=== PATIENT | female | born 1960 | race Caucasian/White ===

== ENCOUNTER → 2017-11-21 07:51 | Outpatient (CLI) | payer OTHER, SELFPAY ==
--- NOTE | 2017-11-21 07:53 | CT_ITS ---
STUDY: CT BRAIN WITHOUT CONTRAST REASON FOR EXAM: Female, 57 years old. One-month history of daily headaches. RADIATION DOSAGE (If Supplied By Facility): CTDIvol = ( 44.99 ) mGy, DLP = ( 796.11 ) mGycm TECHNIQUE: Transaxial CT imaging of the brain was performed without administration of intravenous contrast material. Individualized dose optimization techniques were used for this CT. COMPARISON: Comparison is made with prior study dated July 13, 2010. FINDINGS: Normal soft tissue structures. Normal calvarium. Normal size ventricles and extra-axial spaces for the patient's age. Normal white matter tracts of the cerebral hemispheres. Normal basal ganglia and thalami. Normal brainstem. Normal cerebellum. There is no intracranial hemorrhage. There are no findings of an acute ischemic infarction. Normal visualized paranasal sinuses. CT/Brain/Head without Contrast IMPRESSION: Normal unenhanced CT scan of the brain. Electronically Signed: Kai Maldonado MD at 9:57 EST Tel [phone], Service support ,
== END ==
PROVIDERS: Family Provider Internal Medicine; PCP Internal Medicine; Visit Provider Internal Medicine
DX: R51 Headache (principal)
CPT/HCPCS: 70450

== ENCOUNTER → 2018-05-19 08:09 | Outpatient (CLI) | payer OTHER, SELFPAY ==
--- NOTE | 2018-05-19 08:12 | CDU_ITS ---
Reason For Study: dizzy Rt. Velocities/BP Lt. Velocities/BP Prox CCA 68.6/22.3 cm/sec. Prox CCA 82.1/36.9 cm/sec. Mid CCA 78.6/27.0 cm/sec. Mid CCA 76.8/27.6 cm/sec. Dist CCA 76.8/30.5 cm/sec. Dist CCA 75.6/31.7 cm/sec. Prox ICA 55.1/21.7 cm/sec. Prox ICA 51.6/22.3 cm/sec. Mid ICA 55.1/26.4 cm/sec. Mid ICA 49.4/21.5 cm/sec. Dist ICA 79.2/26.4 cm/sec. Dist ICA 60.3/33.2 cm/sec. Rt. ICA/CCA = 1.0. Lt. ICA/CCA = .8. Prox ECA 61.0/15.8 cm/sec. Prox ECA 90.3/22.3 cm/sec. Rt. Vert. 40.5/17.0 cm/sec. Lt. Vert. 46.9/19.9 cm/sec. Right Extracranial There is intimal thickening but no significant atherosclerotic plaque noted in the right common carotid artery. There is intimal thickening but no significant atherosclerotic plaque noted in the right internal carotid artery. There is intimal thickening but no significant atherosclerotic plaque noted in the right external carotid artery. Antegrade flow is noted in the right vertebral artery. Left Extracranial There is intimal thickening but no significant atherosclerotic plaque noted in the left common carotid artery. There is intimal thickening but no significant atherosclerotic plaque noted in the left internal carotid artery. There is intimal thickening but no significant atherosclerotic plaque noted in the left external carotid artery. Antegrade flow is noted in the left vertebral artery. Interpretation Summary No significant atherosclerotic plaque or stenosis noted in the internal carotid arteries bilaterally. Flow within the vertebral arteries is antegrade bilaterally. Ordering Physician: Brandy Shirley Performed By: Rl Brandon RVT
== END ==
PROVIDERS: Family Provider Internal Medicine; PCP Internal Medicine; Visit Provider Internal Medicine
DX: R42 Dizziness and giddiness (principal)
CPT/HCPCS: 93880

== ENCOUNTER → 2018-08-13 10:33 | Outpatient (CLI) | payer OTHER, SELFPAY ==
--- NOTE | 2018-08-13 10:37 | RAD_ITS ---
STUDY: X-RAY - RIGHT ANKLE REASON FOR EXAM: Female, 57 years old. Lateral ankle pain and soft tissue swelling following a fall. TECHNIQUE: 2 view(s) of the ankle. COMPARISON: None. FINDINGS: Normal visualized distal tibia and fibula. Normal medial and lateral malleoli. Normal tibiotalar articulation and ankle mortise. Calcaneal spurs. The visualized subtalar, talonavicular, calcaneocuboid and tarsal articulations are normal. Diffuse soft tissue swelling. RAD/Ankle 2 Views IMPRESSION: Diffuse soft tissue swelling. Electronically Signed: Kai Maldonado MD at 10:58 EDT Tel [phone], Service support ,
== END ==
PROVIDERS: Family Provider Internal Medicine; PCP Internal Medicine; Referring Provider Internal Medicine; Visit Provider Internal Medicine
DX: M25.571 Pain in right ankle and joints of right foot (principal)
CPT/HCPCS: 73600

== ENCOUNTER 2018-12-04 06:01 | Day surgery (SDC) | payer OTHER, SELFPAY ==
[2018-09-07 12:49] VITALS: BMI 39.5
[2018-12-04] VITALS (7 sets, daily range): BP systolic 107–129; BP diastolic 69–91; PULSE 75–82; RESP 16–18; TEMP 36.3–36.6; O2SAT 95–98; BMI 41.7
--- NOTE | 2018-12-04 05:47 | PCM.HP.STD ---
Problem List (1) Family history of colon cancer in mother Status: Acute History of Present Illness Date of Admission: 12/04/18 The patient is a 58 year old F surgical consultation regarding intractable gastroesophageal reflux disease. He has never had an upper endoscopy. He is dependent upon famotidine and ranitidine. In addition he has a mother who had colon cancer and she of her disease. The patient has had 3 previous colonoscopies. Most recent colonoscopy was November 30, 2013. 5-year follow-up was recommended. She has not had a personal history of colon polyps or colon cancer. Significant health issue includes a BMI of 39.5. Past Medical History Medical History: Medical History (Last Updated 09/07/18 @ 12:46 by Demetria Martinez) Family history of colon cancer in mother (Acute) Z80.0 GERD (gastroesophageal reflux disease) (Acute) K21.9 Anemia D64.9 Anxiety F41.9 GERD (gastroesophageal reflux disease) K21.9 Hyperlipidemia E78.5 Plantar fasciitis M72.2 HTN (hypertension) I10 Allergies amoxicillin Allergy (Mild, Verified 09/07/18 12:50) hives latex Allergy (Mild, Verified 09/07/18 12:50) hives Sulfa (Sulfonamide Antibiotics) Allergy (Mild, Verified 09/07/18 12:50) hives Home Medications: Ambulatory Orders Medication Instructions Recorded amlodipine 5 mg-benazepril 20 mg 1 cap PO DAILY 09/07/18 capsule aspirin 81 mg tablet,delayed 81 mg PO DAILY 09/07/18 release calcium carbonate 500 mg calcium 500 mg PO DAILY tab 09/07/18 (1,250 mg) tablet cholecalciferol (vitamin D3) 50,000 unit PO QWEEK 09/07/18 50,000 unit capsule citalopram 20 mg tablet 20 mg PO DAILY 09/07/18 omeprazole 40 mg capsule,delayed 40 mg PO DAILY 09/07/18 release pravastatin 20 mg tablet 20 mg PO DAILY 09/07/18 Surgical History: Surgical History (Last Updated 09/07/18 @ 12:46 by Demetria Martinez) History of section Z98.891 History of colonoscopy Z98.890 History of foot surgery Z98.890 Smoking Status: Never smoker Tobacco Use: Non-smoker Review of Systems Constitutional: Denies: Anorexia HEENT: Reports: - - Reflux Cardiovascular: Denies: Chest Pain Respiratory: Denies: Cough Gastrointestinal: Denies: Abdominal Pain, Melena Endocrine: Denies: Change in Body Habitus VTE Information - Inpt Only VTE Present on Admission: No - Physical Exam General: Alert, Oriented x3, Cooperative, No apparent distress Oral: Moist Mucosa Lungs: Clear to auscultation Cardiovascular: Regular rate, Regular Rhythm Abdomen: Bowel Sounds Present, Soft, Non Tender Extremities: No Calf Tenderness Psych/Mental Status: Normal Affect Body Mass Index (BMI) 39.5 Assessment/Plan All Active Problems (Last Updated 09/07/18 @ 12:46 by Demetria Martinez) Family history of colon cancer in mother (Acute) GERD (gastroesophageal reflux disease) (Acute) I have recommended the patient a esophagogastroduodenoscopy with possible biopsy or polypectomy and a colonoscopy with possible biopsy or polypectomy as indicated. She is aware of the technique, benefits, risks, alternatives. She has had an opportunity to ask and have questions answered. We have scheduled we will proceed as noted. Gautam Burgos M.D., F.A.C.S.
--- NOTE | 2018-12-04 07:00 | IMM_PTH ---
PATIENT: LARISSA HAMMONDS LOC: [facility] U#:[id number] AGE/SX: 58/F ROOM: RE12/04/[address]: Dr. Gautam Burgos MD : 1960 BED: DIS: 12/04/2018 SPEC #: [id number] RECD: 12/04/18 13:34 STATUS: ROBIN RESherry #: [id number] DANETTE: 12/04/18 07:[address]: Gautam Burgos DEPT: IMMUNOHISTOCHEMISTRY RECD BY: Germaine Shaikh ENTERED: 12/04/18 13:34 SP TYPE: IMMUNO OTHR DR: Dr. Brandy Shirley DO Tissues: A - Stomach, NOS Procedures: H Pylori (initial) PHYSICIAN & INSTITUTION [place] [address] SPECIMEN INFORMATION: Tissue Source: A - Antral biopsy Clinical Info: GERD, family history colon cancer Specimen Number: [id number] CPT code: 81044 METHODOLOGY: Deparaffinized sections of prefer/formalin-fixed tissue or PAP/DQ stained slides are incubated with monoclonal/polyclonal antibodies/oligonucleotide probes. Localization is made via biotin free immunoperoxidase method. Appropriate controls are performed and reacted as expected. Results on target cell population are indicated in the following table: RESULTS: ANTIBODY / CLONE RESULT Block A H Pylori (polyclonal) negative These tests were developed and their performance characteristics determined by [facility]. They may not have been cleared or approved by the U.S. Food and Drug Administration. The FDA has determined that such clearance or approval is not necessary. INTERPRETATION: A. Antral biopsy: Negative for Helicobacter pylori organisms. SJ:dannie 12/07/18
--- NOTE | 2018-12-04 07:00 | EGD_PTH ---
PATIENT: LARISSA HAMMONDS LOC: [facility] U#:[id number] AGE/SX: 58/F ROOM: RE12/04/[address]: Dr. Gautam Burgos MD : 1960 BED: DIS: 12/04/2018 SPEC #: [id number] RECD: 12/04/18 09:52 STATUS: ROBIN GERMÁN #: [id number] DANETTE: 12/04/18 07:[address]: Gautam Burgos DEPT: SURGICAL PATHOLOGY RECD BY: Brandie Tenorio ENTERED: 12/04/18 11:33 SP TYPE: EGD BIOPSY OT DR: Dr. Brandy Shirley DO Tissues: A - Gastric mucous membrane B - Gastric mucous membrane C - Esophageal mucous membrane D - Esophageal mucous membrane Procedures: Special Stain Group II Surgery Specimen Level IV Alcian Blue/PAS (control) HEADER OPERATION[place] [place] PRE[place]OP DIAGNOSIS: GERD, family history of colon cancer TISSUE SUBMITTED: A. Antral biopsy for H. pylori and pathology, B. Body of stomach polyp biopsy, C. Distal esophageal biopsies, D. Mid esophageal biopsies MICROSCOPIC DIAGNOSIS A. Antral biopsy: Mild gastritis. See microscopic description and comment. B. Body of stomach polyp, biopsy: Consistent with fundic gland polyp. C. Distal esophageal biopsy: Fragments of gastroesophageal mucosa with mid chronic inflammation. Intestinal metaplasia (goblet cell metaplasia) is not identified. See comment. D. Mid esophageal biopsy: Fragments of squamous epithelium with mild congestion. SJ:dannie 12/07/18 COMMENT A. The results of immunohistochemistry for Helicobacter pylori will be reported separately ([id number]). C. The specimen predominantly consists of squamous epithelium. Alcian blue/PAS stain with matched control is used in the evaluation of the specimen. MICROSCOPIC DESCRIPTION Slides are reviewed. A. The specimen shows fragments of gastric mucosa with chronic inflammatory cell infiltrates in the lamina propria consisting of lymphocytes and plasma cells, consistent with mild chronic gastritis. GROSS DESCRIPTION A - Received in fixative is one container labeled with the patient's name and designated antral biopsy. The specimen consists of one irregular fragment of light swan soft tissue that measures 0.5 x 0.2 x 0.1 cm. The specimen is totally submitted in one cassette. B - Received in fixative is one container labeled with the patient's name and designated body of stomach polyp. The specimen consists of one irregular fragment of light swan soft tissue that measures 0.6 x 0.2 x 0.1 cm. The specimen is totally submitted in one cassette. C - Received in fixative is one container labeled with the patient's name and designated distal esophagus biopsy. The specimen consists of multiple irregular fragments of light swan soft tissue that in aggregate measure 0.7 x 0.5 x 0.1 cm. The specimen is totally submitted in one cassette. D - Received in fixative is one container labeled with the patient's name and designated mid esophageal biopsy. The specimen consists of multiple irregular fragments of light swan soft tissue that in aggregate measure 0.6 x 0.2 x 0.1 cm. The specimen is totally submitted in one cassette. / AM:dannie 12/04/18 TC:4 CPT: 84280 x4, 89594
--- NOTE | 2018-12-04 07:34 | OP.ENDO_ITS ---
12/04/2018 Brandy Shirley [address] [place] [address] Re : Upper GI endoscopy procedure for Bennettangelicapreeti Kline Dear Dr. Shirley This procedure was performed on Tuesday, December 04, 2018. My impressions and recommendations are as follows: Impressions : - Reflux esophagitis. Biopsied. - Small hiatal hernia. - Esophageal mucosal variant. Biopsied. - Erythematous mucosa in the antrum. Biopsied. - Multiple gastric polyps. Resected and retrieved. - Normal examined duodenum. Recommendations : - Resume previous diet. - Continue present medications. - Telephone my office for pathology results in 1 week. My findings are described in the full procedure note, which is enclosed. If I can be of further assistance, please feel free to contact me at Doctor phone number(s): Work: . Sincerely, Gautam Burgos MD 12/04/2018 7:34:08 AM This report has been signed electronically.
--- NOTE | 2018-12-04 07:36 | OP.ENDO_ITS ---
12/04/2018 Brandy Shirley [address] [place] [address] Re : Colonoscopy procedure for Johann Kline Dear Dr. Shirley This procedure was performed on Tuesday, December 04, 2018. My impressions and recommendations are as follows: Impressions : - The entire examined colon is normal. - No specimens collected. Recommendations : - Discharge patient to home. - Resume previous diet. - Continue present medications. - Repeat colonoscopy in 5 years for surveillance. My findings are described in the full procedure note, which is enclosed. If I can be of further assistance, please feel free to contact me at Doctor phone number(s): Work: . Sincerely, Gautam Burgos MD 12/04/2018 7:35:56 AM This report has been signed electronically.
== END 2018-12-04 08:10 | disposition home or self-care (01) ==
LOC: EN 06:02 → AC 06:03
PROVIDERS: Family Provider Internal Medicine; PCP Internal Medicine; Referring Provider Surgery; Visit Provider Surgery
PROC: 0DJD8ZZ Inspection of Lower Intestinal Tract, Via Natural or Artificial Opening Endoscopic (ICD-10-PCS; CPT 45378; principal; 2018-12-04 06:55)
DX: K21.0 Gastro-esophageal reflux disease with esophagitis (principal); K29.70 Gastritis, unspecified, without bleeding; K44.9 Diaphragmatic hernia without obstruction or gangrene; K22.8 Other specified diseases of esophagus; K31.89 Other diseases of stomach and duodenum; K31.7 Polyp of stomach and duodenum; Z80.0 Family history of malignant neoplasm of digestive organs; I10 Essential (primary) hypertension; D64.9 Anemia, unspecified; F41.9 Anxiety disorder, unspecified; E78.5 Hyperlipidemia, unspecified; Z79.82 Long term (current) use of aspirin; Z79.899 Other long term (current) drug therapy
CPT/HCPCS: 43239; 45378; 88305; 88313; 88342; J7120

== ENCOUNTER → 2019-02-12 12:53 | Outpatient (CLI) | payer OTHER, SELFPAY ==
[2018-12-04 06:25] VITALS: BMI 41.7
--- NOTE | 2019-02-12 13:45 | MRI_ITS ---
HISTORY: RIGHT ankle, RIGHT achilles tendinitis, heel spur EXAMINATION: MR Ankle W/O Contrast TECHNIQUE: Multiplanar and multisequence MR images of the right ankle. IV Contrast dosage and agent: COMPARISON: Right ankle x-ray 08/13/2018 FINDINGS: The right Achilles shows normal signal without findings of tear, suspicious thickening, or tendinosis. No tenosynovitis. Small posterior calcaneal spur. No plantar fasciitis seen. Normal posterior tibial, peroneal, and anterior extensor tendons. Normal tibiofibular and talofibular ligaments and normal deltoid ligament. No fracture, marrow edema, or avascular necrosis. No osteomyelitis. Intact talar dome. The tibiotalar and subtalar joints appear normal. No bony erosions. Mild diffuse soft tissue swelling with both superficial and deep edema noted, nonspecific. MRI/Lower Ext Joint Only (Routine) IMPRESSION: 1. Mild diffuse soft tissue swelling, nonspecific. Chronic venous insufficiency would be included in the differential. 2. Small posterior calcaneal spur. Normal Achilles without tear or tendinosis. No plantar fasciitis seen. at 0507 Reported and signed by: Eric Kovacs MD Electronically Signed: Eric Kovacs, at 5:06 EDT Tel , Service support ,
== END ==
PROVIDERS: Family Provider Internal Medicine; PCP Internal Medicine; Referring Provider Podiatrist; Visit Provider Podiatrist
DX: M77.31 Calcaneal spur, right foot (principal); M76.61 Achilles tendinitis, right leg; S86.011A Strain of right Achilles tendon, initial encounter
CPT/HCPCS: 73721

== ENCOUNTER → 2019-11-15 11:55 | Outpatient (CLI) | payer OTHER, SELFPAY ==
[2018-12-04 06:25] VITALS: BMI 41.7
--- NOTE | 2019-11-15 11:58 | BI_ITS ---
MAMMOGRAPHY - BILATERAL SCREENING REASON FOR EXAM: Female, 59 years old. Routine annual screening examination. PERTINENT HISTORY: Grandmother with breast cancer. TECHNIQUE: Digital bilateral breast otilio (3D mammographic acquisition) in the CC and MLO projections. 2-D mediolateral oblique (MLO) and craniocaudad (CC) views of both breasts were obtained. CAD: Full Field Digital Mammography with Computer Added Detection was performed. COMPARISON: Comparison is made with prior study dated September 08, 2017. FINDINGS: Breast Composition: There are scattered areas of fibroglandular density. There are no dominant masses or suspicious calcifications. Stable small bilateral benign appearing axillary lymph nodes. No other significant abnormalities are identified. There has been no significant change since the prior study. BI/SCREEN MAMM (CAD) W/OTILIO BILAT IMPRESSION: Stable bilateral screening mammogram. Yearly follow-up mammogram recommended. (A) ASSESSMENT CATEGORY: BIRADS Category 2: Benign. A letter regarding these results will be sent to the patient by the facility within 30 days. Approximately 10% of breast cancers are not detected by mammography. A normal mammogram should not delay biopsy of a clinically suspicious abnormality. [id number] Electronically Signed: Kai Maldonado, at 13:12 EST , Service support ,
== END ==
PROVIDERS: PCP Internal Medicine; Referring Provider Nurse Practitioner Women's Health; Visit Provider Nurse Practitioner Women's Health
DX: Z12.31 Encounter for screening mammogram for malignant neoplasm of breast (principal)
CPT/HCPCS: 77063; 77067

== ENCOUNTER → 2019-11-25 10:38 | Outpatient (CLI) | payer OTHER, SELFPAY ==
[2018-12-04 06:25] VITALS: BMI 41.7
--- NOTE | 2019-11-25 10:43 | MRI_ITS ---
STUDY: MRI LEFT ANKLE WITHOUT CONTRAST REASON FOR EXAM: Female, 59 years old. plantar fasciitis left, pain plantar and posterior left heel; hx prior surgery for plantar fasciitis TECHNIQUE: Standardized fat and water weighted pulse sequences were obtained in all 3 orthogonal planes. COMPARISON: None. FINDINGS: Diffuse edema of the subcutaneous fat. Normal posterior tibialis tendon. Normal flexor digitorum longus tendon. Normal flexor hallucis longus tendon. Normal peroneus longus and brevis tendons. Normal tibialis anterior tendon. Normal extensor hallucis longus tendon. Normal extensor digitorum longus tendons. Normal Achilles tendon and teno-osseous insertion. There is a plantar fasciitis with plantar fascial thickening and fascial edema, but without a focal tear. There is a plantar calcaneal spur with cancellous marrow edema consistent with a marrow stress phenomena. Normal intrinsic muscles of the rearfoot. Normal distal tibiofibular syndesmotic ligamentous complex. Normal lateral ligamentous complex. Normal subtalar ligaments and sinus tarsi. Normal deltoid ligamentous complexes. Normal plantar calcaneonavicular (spring) ligament. Normal tibiotalar articulation. Normal talar dome. Normal subtalar articulations. Normal talonavicular articulation. Normal calcaneocuboid articulation. Normal navicular-cuneiform articulations. MRI/Lower Ext Joint Only (Routine) IMPRESSION: 1. Plantar fasciitis with small plantar calcaneal enthesophyte with mild reactive edema of the adjacent calcaneus but no plantar fascial tear. 2. Diffuse soft tissue swelling. Electronically Signed: Juan Perez MD at 8:42 EST Tel , Service support ,
== END ==
PROVIDERS: PCP Internal Medicine; Referring Provider Podiatrist; Visit Provider Podiatrist
DX: M72.2 Plantar fascial fibromatosis (principal); M76.62 Achilles tendinitis, left leg; M77.32 Calcaneal spur, left foot
CPT/HCPCS: 73721

== ENCOUNTER 2019-12-17 09:19 | Day surgery (SDC) | payer OTHER, SELFPAY ==
[2018-12-04 06:25] VITALS: BMI 41.7
[2019-12-17] VITALS (7 sets, daily range): BP systolic 109–128; BP diastolic 63–78; PULSE 59–78; RESP 16–18; TEMP 36.6–37.2; O2SAT 92–100; BMI 46.3
--- NOTE | 2019-12-17 | BON_PTH ---
PATIENT: LARISSA HAMMONDS LOC[place] [facility] [place][id number] AGE/SX: 59/F ROOM: RE12/17/[address]: Dr. Rush George DPM : 1960 BED: DIS: 12/17/2019 SPEC #: [id number] RECD: 12/17/19 13:27 STATUS: ROBIN GERMÁN #: [id number] DANETTE: 12/17/19 00:[address]: Rush George DEPT: SURGICAL PATHOLOGY RECD BY: Jamal Dobson ENTERED: 12/17/19 13:28 SP TYPE: Bone OTHR DR: Dr. Brandy Shirley, DO Tissues: Bone of foot, NOS Procedures: Surgery Specimen Level IV HEADER OPERATION: Plantar fasciotomy with resection of infracalcaneal spur PRE-OP DIAGNOSIS: Achilles tendon retrocalcaneal heel spur; plantar fascitis with infracalcaneal heel spur TISSUE SUBMITTED: Posterior heel spur left MICROSCOPIC DIAGNOSIS Left posterior heel spur, biopsy: Rare red blood cells are present. See comment. AM:dannie 12/24/19 COMMENT The contents of the specimen container were filtered and processed. Clinical correlation is necessary. MICROSCOPIC DESCRIPTION Slides are reviewed. GROSS DESCRIPTION Received in fixative is one container labeled with the patient's name and designated posterior heel spur left. No specimen is present in the container. / SJ:dannie 12/17/19 TC: 5 CPT: 33528
[2019-12-17] MEDS: Lactated Ringers 1,000 ML 100 ML IV ×2 (09:51→12:15)
--- NOTE | 2019-12-17 10:55 | PCM.DC.POD ---
Discharge Diet: Light diet - advance as tolerated Discharge Activity: May Not Drive, Use Walker, Use Crutches Weight Bearing Status: No weight bearing - No weightbearing left foot Keep extremity elevated above heart level: Left Leg - Keep left foot elevated at least 50 minutes of every hour and keep pressure off of heel Call your doctor if your incision/area has: Continuous Slow Oozing, Sudden Increased Bleeding Call your doctor if you observe: Fever of 101 or Higher, Shortness of breath, Chest pain, Calf discomfort, Uncontrolled pain Cleanse incision/area with: Do not get Incision Wet, Keep Dressing Clean & Dry Allergies/Adverse Reactions: Allergies amoxicillin Allergy (Mild, Verified 12/17/19 09:41) hives latex Allergy (Mild, Verified 12/17/19 09:41) hives Sulfa (Sulfonamide Antibiotics) Allergy (Mild, Verified 12/17/19 09:41) hives Medications to take at Discharge amlodipine 5 mg-benazepril 20 mg capsule 1 cap PO QHS 09/07/18 aspirin 81 mg tablet,delayed release 81 mg PO DAILY 09/07/18 calcium carbonate 500 mg calcium (1,250 mg) tablet 500 mg PO DAILY tab 09/07/18 cholecalciferol (vitamin D3) 1,250 mcg (50,000 unit) capsule 50,000 unit PO QWEEK 09/07/18 citalopram 20 mg tablet 20 mg PO QHS 09/07/18 omeprazole 40 mg capsule,delayed release 40 mg PO QHS 09/07/18 pravastatin 20 mg tablet 40 mg PO QHS 09/07/18 Oxycodone HCl/Acetaminophen [Percocet 5-325 mg Tablet] 1 - 2 each PO Q6H PRN PRN #30 tablet 12/17/19 Rivaroxaban [Xarelto] 10 mg PO DAILY #30 tab 12/17/19 The following prescriptions were given: Oxycodone HCl/Acetaminophen [Percocet 5-325 mg Tablet] 1 - 2 each PO Q6H PRN PRN #30 tablet PRN Reason: Pain Score 1-07/22 Transmission Status: Sent to [facility] Rivaroxaban [Xarelto] 10 mg PO DAILY #30 tab Transmission Status: Pending to [facility] Primary Care Physician: Brandy Shirley DO [Primary Care Provider] - Test Results: Test results from this visit will be discussed in further detail at your follow-up appointment, if applicable. Please Follow Up With: Rush George DPM When: 1 week, sooner if needed
--- NOTE | 2019-12-17 11:00 | RAD_ITS ---
STUDY: X-RAY - LEFT CALCANEUS REASON FOR EXAM: Female, 59 years old. PLANTAR FASCIOTOMY, ETC. IN O.R. 3 IMAGES, 18 SEC. FL TECHNIQUE: 2 view(s) of the calcaneus were obtained. COMPARISON: Comparison is made with prior radiograph dated August 13, 2018. FINDINGS: Status post plantar fasciotomy and spur removal. RAD/Calcaneus min 2 Views IMPRESSION: Status post plantar fasciotomy and spur removal. Electronically Signed: Kai Maldonado, at 14:09 EST , Service support ,
[2019-12-17] MEDS: Bupivacaine Mpf 0.5% 30 ML VIAL (12:40)
--- NOTE | 2019-12-17 12:49 | RAD_ITS ---
STUDY: X-RAY - LEFT CALCANEUS REASON FOR EXAM: Female, 59 years old. Post op plantar fasciotomy resection spur TECHNIQUE: 2 view(s) of the calcaneus were obtained. COMPARISON: Comparison is made with prior radiograph done earlier in the day. FINDINGS: The patient is status post fasciotomy and spur removal. Postoperative soft tissue changes. RAD/Calcaneus min 2 Views IMPRESSION: Status post fasciotomy and spur removal. Postoperative soft tissue changes. Electronically Signed: Kai Maldonado, at 14:10 EST , Service support ,
--- NOTE | 2019-12-17 12:49 | PCM.OPRPT ---
Report of Operation Date of Procedure: 12/17/19 Pre-Operative Diagnosis: Painful Haglunds deformity and retrocalcaneal spur, left. Plantar fasciitis, infracalcaneal spur, left Post-Operative Diagnosis: Same Surgery/Procedure Performed:: Detach/Retach achilles tendon with resection of Haglunds deformity and retrocalcaneal spur, left. 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 Tripp Clark Type of Anesthesia:: General Specimen's removed: Bone from left posterior calcaneus sent to pathology Estimated Blood Loss (mL): 1mL Description of Procedure: Indications: This is a 59 year old female with chronic left heel pain, to the posterior heel as well as the inferior heel, despite extensive conservative/nonsurgical management. She continues to have pain and symptoms. Xrays showed an infracalcaneal spurring, as well as retrocalcaneal exostosis/spur with Ant's Deformity, which are the sites of pain. She continues to have pain which was really bothering her and affecting her daily activities. Because symptoms persist, she has elected to undergo detach/reattach Achilles tendon with resection of the retrocalcaneal spur and Ant's Deformity/retrocalcaneal spur, along with plantar fasciotomy with resection of infracalcaneal spur. MRI was reviewed pre op. The procedures were discussed with her in great detail, reviewed the possible benefits vs risks and potential complications. Typical post op recovery was reviewed with her. The goals and the expectations were reviewed with her in detail. The consent forms were reviewed with her in detail, and she freely signed them. No guarantees were given or implied. All of her questions were answered. Operative Procedure: The patient was brought back into the operating room. A time out was performed and the patient was properly identified and the surgical plan was confirmed. The patient received 900mg of IV Clindamycin for antibiotic prophylaxis. A well padded pneumatic tourniquet was applied around the left thigh. The patient received general per the anesthesiologist. The patient was placed on the operating room table in the prone position, with good padding and offloading for all of the bony prominences. She was carefully secured to the operating room table with a safety belt around her waist. The left foot/ankle/leg were scrubbed, prepped, draped in the usual aseptic fashion. The left foot was elevated for 3 minutes and the left thigh pneumatic tourniquet was inflated to 300mmHg. Attention was directed to the posterior heel. There was a large palpable exostosis present at the level of the posterior calcaneus consistent with Ant's deformity as well as retrocalcaneal exostosis. A linear incision was made using a 15 blade to the posterior aspect of the distal Achilles tendon and posterior calcaneus. Careful blunt dissection was completed down through the subcutaneous tissue layer, down to the Achilles tendon and posterior calcaneus. The Achilles tendon was intact, and appeared healthy and viable. The distal Achilles tendon was incised at the level of the distal midline, and was partially reflected off of the central posterior calcaneus exposing the retrocalcaneal spur and Ant deformity. The retrocalcaneal spur and the Ant deformity were resected using a powered sagittal saw and a powered rasp, the resected bone was sent to pathology. Intraoperative fluoroscopy was obtained confirming proper resection of the spur and Ant deformity. The site was flushed out with copious amounts of normal saline solution. The Achilles tendon was reattached to the central portion of the posterior calcaneus using 1 Arthrex Speedbridge in standard fashion. 2 airplane patrol pilot holes were created for the 4.75mm BioComposite Swivelock anchors at the level of 1 cm proximal to the distal insertion of the Achilles tendon and central to each half of the tendon. The airplane patrol pilot holes were tapped with the 4.75mm tap. The two 4.75mm BioComposite Swivel anchors were inserted. The suture was passed through the Achilles tendon on each side. The 2 distal holes were prepared on the posterior calcaneus distal to the insertion of the Achilles tendon with the drill and then the tap. One suture tail from each of the proximal anchors were retrieved and passed through the 2 SwiveLock anchors. The tension was adjusted to the appropriate tension and the 4.75 mm Swivelock anchors were inserted into the distal prepared bone sites. The suture tails were cut flush with the Swivelock anchors. The Swivelock anchors were flush with the bone. The FiberWire suture from each Swivelock anchor was also passed through the Achilles tendon and tied for extra stability and repair. 3-0 Vicryl was also used to reapproximate the midline Achilles tendon incision. There was excellent repair of the Achilles tendon, with negative Maddox test. The surgical site was flushed out with copious amounts of normal saline solution. The subcutaneous tissue layer was reapproximated using 3-0 Vicryl. the skin was reapproximated using 4-0 Monocryl. Attention was directed to the left inferior heel. The infracalcaneal spur was visualized on intra operative fluoroscopy. A skin incision was made to the medial hindfoot at the level of the plantar fascia and infracalcaneal spur, careful dissection was completed down through the subcutaneous tissue layer. A plane was created superiorly and inferiorly around the plantar fascia, there was significant adhesions. The medial 50% of the plantar fascia was released via a plantar fasciotomy. It was noted there was significant thickening of the plantar fascia with fibrosis consistent with chronic plantar fasciitis. The infracalcaneal spur was felt, and was carefully resected using a powered rasp. Resection of the infracalcaneal spur was confirmed using intraoperative fluoroscopy. Images pre and post infracalcaneal spur resection were saved. The site was flushed out with copious amounts of normal saline solution. The skin was reapproximated using 4-0 Monocryl. The pneumatic tourniquet was deflated at 70 minutes, there was immediate return of warmth and perfusion to the foot and to all toes on the foot with normal temperature present. CFT < 2 seconds to all toes. 8mL of 0.5% bupivacaine plain was given as a local nerve block around the surgical site. A dressing was applied which consisted of Cavilon to the sutured skin incision edges, and then steristrips, Betadine soaked adaptic, 4x4 gauze, Kerlix and thais bandage, and a well padded below the knee posterior splint with heel offloaded. The patient tolerated the above operative procedure well at the anesthesia well with no complication. The patient was transported to the recovery room with vital signs stable and in good condition. Post operative orders were placed. Post operative instructions were reviewed with her as well as with her who was present with her today. No weightbearing left foot, keep left foot elevated for at least 50 minutes of every hour, keep dressing clean, dry and intact. Prescription for Percocet 5mg/325mg was prescribed: 1-2 tabs PO q 6 hours PRN pain for pain control. Xarelto 10mg tablet once a day to help prevent a blood clot. She is to follow up with me within 1 week or sooner if needed. Post operative xrays were obtained in the recovery room which confirmed resection of the left retrocalcaneal spur and Ant deformity, as well as resection of infracalcaneal spur, otherwise no acute changes with no post operative complications. Grafts/Implants Used: Arthrex Speed Bridge - Complications None
== END 2019-12-17 14:34 | disposition home or self-care (01) ==
LOC: SDC 09:20 → AC 09:22
PROVIDERS: PCP Internal Medicine; Referring Provider Podiatrist; Visit Provider Podiatrist
PROC: (CPT 28119; principal; 2019-12-17 10:45)
DX: M77.32 Calcaneal spur, left foot (principal); M72.2 Plantar fascial fibromatosis; F41.9 Anxiety disorder, unspecified; K21.9 Gastro-esophageal reflux disease without esophagitis; E78.00 Pure hypercholesterolemia, unspecified; Z79.899 Other long term (current) drug therapy; Z79.82 Long term (current) use of aspirin; I10 Essential (primary) hypertension; G47.30 Sleep apnea, unspecified; E66.9 Obesity, unspecified; Z68.41 Body mass index [BMI] 40.0-44.9, adult; E55.9 Vitamin D deficiency, unspecified
CPT/HCPCS: 01480; 28119; 64445; 73650; 76000; 88304; 88305; 88311; J7120; J2405

== ENCOUNTER → 2021-03-21 10:49 | Outpatient (CLI) | payer OTHER, SELFPAY ==
[2019-12-17 09:43] VITALS: BMI 46.3
[2021-03-21 10:20] VITALS: BMI 45.6
--- NOTE | 2021-03-21 10:57 | BI_ITS ---
MAMMOGRAPHY - BILATERAL SCREENING REASON FOR EXAM: Female, 60 years old. Routine annual screening examination. PERTINENT HISTORY: Grandmother with breast cancer. TECHNIQUE: Digital bilateral breast otilio (3D mammographic acquisition) in the CC and MLO projections. 2-D mediolateral oblique (MLO) and craniocaudad (CC) views of both breasts were obtained. CAD: Full Field Digital Mammography with Computer Added Detection was performed. COMPARISON: Comparison is made with prior study dated 11/15/2019 and 09/08/2017. FINDINGS: Breast Composition: There are scattered areas of fibroglandular density. There are no dominant masses or suspicious calcifications. Stable small benign-appearing bilateral axillary lymph nodes. No other significant abnormalities are identified. There has been no significant change since the prior study. BI/SCRN MAMM (CAD)W/OTILIO BILAT IMPRESSION: Stable bilateral screening mammogram. Yearly follow-up mammogram recommended. (A) ASSESSMENT CATEGORY: BIRADS Category 2: Benign. A letter regarding these results will be sent to the patient by the facility within 30 days. Approximately 10% of breast cancers are not detected by mammography. A normal mammogram should not delay biopsy of a clinically suspicious abnormality. [id number] Electronically Signed: Kai Maldonado MD at 11:41 EDT , Service support ,
== END ==
PROVIDERS: PCP Internal Medicine; Referring Provider Nurse Practitioner Women's Health; Visit Provider Nurse Practitioner Women's Health
DX: Z12.31 Encounter for screening mammogram for malignant neoplasm of breast (principal)
CPT/HCPCS: 77063; 77067

== ENCOUNTER → 2021-06-25 16:05 | Outpatient (CLI) | payer OTHER, SELFPAY | PROVIDERS: PCP Internal Medicine; Visit Provider Nurse Practitioner | DX: Z20.822 Contact with and (suspected) exposure to COVID-19 (principal) | CPT/HCPCS: 87633 ==

== ENCOUNTER → 2021-07-23 15:19 | Outpatient (CLI) | payer OTHER, SELFPAY ==
[2021-07-23 16:02] LABS: Bacteria 0 SEEN /hpf (None Seen); Mucous, Urine 0 SEEN /hpf (<or=2+); Red Blood Cells-Urine 0 SEEN /hpf (0-5)
[2021-07-23 16:10] LABS: Color, Urine Yellow (Yellow); Glucose, Dipstick Normal (Normal); Ketone-Dipstick Negative (Negative); Leukocyte Esterase-Dipstick 500 /ul (Negative); Nitrite-Dipstick Negative (Negative); Occult Blood-Urine 10 /ul (Negative); Protein-Dipstick Negative (Negative); Specific Gravity, Urine 1.015 (1.002-1.030); Urine Bilirubin Dipstick Negative (Negative); Urine Clarity Clear (Clear); Urine Urobilinogen Normal (Normal); Urine pH 6.5 (5.0 - 8.0)
[2021-07-23 16:12] LABS: Absolute Lymphocyte Count 3.56 X10^3/uL (0.83-4.51); Absolute Neutrophil Count 3.9 X10^3/uL (2.0-7.7); Basophil# 0.06 X10^3/uL; Basophil% 0.7 % (0-1); Eosinophil# 0.13 X10^3/uL; Eosinophils% 1.6 % (0-5); Hematocrit 36.9 % (37-47); Hemoglobin 11.2 g/dL (12.0-15.0); Lymphocyte # 3.56 X10^3/ul (0.83-4.51); Lymphocyte % 43.6 % (19-41); Mean Corp Hgb Conc 30.4 g/dL (32-36); Mean Corpuscular Hgb 19.3 pg (27.0-32.0); Mean Corpuscular Volume 63.6 fL (81-99); Monocyte% 6.1 % (0-10); NRBC Flagged by Analyzer 0 % (0-5); Neutrophil % 47.8 % (47-70); Platelet Count 238 K/mm3 (150-450); RBC Distribution Width CV 16.7 % (11.6-14.6); RBC Distribution Width SD 35.9 fl (35.1-43.9); White Blood Count 8.2 K/mm3 (4.4-11.0)
[2021-07-23 16:21] LABS: ALB/GLOB Ratio 1.1 RATIO (0.9-2.4); AST(SGOT) 9 U/L (15-37); Alanine Aminotransfer ALT/SGPT 23 U/L (13-56); Albumin, Serum 3.6 g/dL (3.2-5.0); Alkaline Phosphatase 88 U/L (45-117); Anion Gap 6 (5-15); BUN 17 mg/dL (7-18); BUN/Creat Ratio 19.2 RATIO (10-20); Calcium,Total 8.9 mg/dL (8.5-10.1); Chloride 108 mmol/L (98-107); Cholesterol 190 mg/dL (200); Creatinine, Serum 0.88 mg/dL (0.55-1.02); EST Glomerular Filtration Rate 70 mL/min (>60); Est Glom Filt Rate - Afr Amer 84 mL/min (>60); Globulin 3.2 g/dL (2.2-4.2); Glucose 97 mg/dL (74-106); High Density Lipoprotein 47 mg/dL; Protein, Total 6.8 g/dL (6.4-8.2); Sodium Level 141 mmol/L (136-145); Triglycerides 106 mg/dL; Very Low Density Lipoprotein 21 mg/dL (5-40)
[2021-07-23 16:27] LABS: Squamous Epithelial Cells - UA 0-5 SEEN /hpf (5-10); White Blood Cells 0-5 SEEN /hpf (0-5)
[2021-07-23 16:31] LABS: Microalbumin,Random Urine 10.5 mg/L (NO RANGE EST.); Microalbumin:Creatinine Ratio 6.6 mg/g CRE (<30 mg/g CRE)
[2021-07-23 16:41] LABS: Vitamin D,25 Hydroxy 47.1 ng/mL
[2021-07-24 13:01] LABS: Thyroid Stim Hormone (TSH) 1.19 uIU/mL (0.358-3.74)
== END ==
PROVIDERS: PCP Internal Medicine; Referring Provider Internal Medicine; Visit Provider Internal Medicine
DX: Z01.84 Encounter for antibody response examination (principal); E78.00 Pure hypercholesterolemia, unspecified; E55.9 Vitamin D deficiency, unspecified; I10 Essential (primary) hypertension
CPT/HCPCS: 80053; 80061; 81001; 82043; 82306; 82570; 84443; 85025; 86769

== ENCOUNTER → 2022-05-23 | Outpatient (CLI) | payer OTHER, SELFPAY ==
--- NOTE | 2022-05-23 09:20 | BI_ITS ---
MAMMOGRAPHY - BILATERAL SCREENING REASON FOR EXAM: Female, 61 years old. Routine annual screening examination. PERTINENT HISTORY: Grandmother with breast cancer. TECHNIQUE: Digital bilateral breast otilio (3D mammographic acquisition) in the CC and MLO projections. 2-D mediolateral oblique (MLO) and craniocaudad (CC) views of both breasts were obtained. CAD: Full Field Digital Mammography with Computer Added Detection was performed. COMPARISON: Comparison is made with prior study dated 03/21/2021 and 11/15/2019 FINDINGS: Breast Composition: There are scattered areas of fibroglandular density. There are no dominant masses or suspicious calcifications. Stable small benign appearing bilateral axillary nodes. No other significant abnormalities are identified. There has been no significant change since the prior study. BI/SCRN MAMM (CAD)W/OTILIO BILAT IMPRESSION: Stable bilateral screening mammogram. Yearly follow-up mammogram recommended. (A) ASSESSMENT CATEGORY: BIRADS Category 2: Benign. A letter regarding these results will be sent to the patient by the facility within 30 days. Approximately 10% of breast cancers are not detected by mammography. A normal mammogram should not delay biopsy of a clinically suspicious abnormality. [id number] Electronically Signed: Kai Maldonado MD at 10:10 EDT ,
== END | disposition home or self-care (01) ==
LOC: OPBI 09:19
PROVIDERS: PCP Internal Medicine; Referring Provider Nurse Practitioner Women's Health; Visit Provider Nurse Practitioner Women's Health
DX: Z12.31 Encounter for screening mammogram for malignant neoplasm of breast (principal)
CPT/HCPCS: 77063; 77067

== ENCOUNTER → 2022-09-12 | Outpatient (CLI) | payer OTHER, SELFPAY ==
--- NOTE | 2022-09-12 06:38 | MRI_ITS ---
STUDY: MRI LUMBAR SPINE WITHOUT CONTRAST REASON FOR EXAM: Female, 62 years old. Lumbar radiculopathy. TECHNIQUE: Standardized fat and water weighted pulse sequences were obtained in the sagittal and axial planes. COMPARISON: None FINDINGS: T11-T12 and T12-L1: (Sagittal). Normal endplates. Normal disc height, hydration and morphology. No ventral extradural defects. Normal central canal and bilateral intervertebral neural foramina. Normal lumbar lordosis. There is no substantial scoliosis. Normal conus medullaris that terminates at the T12-L1 disc space level. L1-2: Normal endplates. Normal disc height, hydration and morphology. Normal bilateral facet joints. Normal central canal and bilateral lateral recesses. Normal bilateral intervertebral neural foramina. L2-3: Normal endplates. Normal disc height, hydration and morphology. Normal bilateral facet joints. Normal central canal and bilateral lateral recesses. Normal bilateral intervertebral neural foramina. L3-4: Normal endplates. Normal disc height, hydration and morphology. Normal bilateral facet joints. Normal central canal and bilateral lateral recesses. Normal bilateral intervertebral neural foramina. L4-5: Normal endplates. Minimal disc space. Prominent left dorsolateral extradural defect due to left medial synovial hypertrophy and left posterior ligamentum flavum hypertrophy. This is causing severe stenosis of the left lateral recess and moderately pronounced central canal stenosis. The AP canal diameter is 6.3 mm. Normal right lateral recess. Moderate left degenerative facet arthropathy. Mild right degenerative facet arthropathy. Normal right lateral recess. Mild stenosis of the bilateral intervertebral neural foramina. L5-S1: Normal endplates. Normal disc height, hydration and morphology. Normal facet joints. Moderate central canal stenosis with AP canal diameter of 7.6 mm secondary to developmentally short pedicles. Normal bilateral lateral recesses. Normal bilateral intervertebral neural foramina. Normal visualized sacral ala. Normal visualized paraspinous soft tissue structures. MRI/Spine Lumbar (Routine) IMPRESSION: 1. Moderately pronounced central canal stenosis with an AP canal diameter of 6.3 mm and severe left lateral recess stenosis at L4-L5 disc space level due to prominent left dorsolateral extradural defect. The ventral extradural defect is most likely coming from left medial synovial hypertrophy, left posterior ligamentum flavum hypertrophy and moderate left degenerative facet arthropathy. 2. Moderate central canal stenosis at L5-S1 disc space level with an AP canal diameter of 7.6 mm secondary to developmentally short pedicles. 3. No MRI evidence of lumbar extruded disc fragment. Electronically Signed: Shaggy Wills MD at 8:23 EST ,
== END | disposition home or self-care (01) ==
PROVIDERS: PCP Internal Medicine; Referring Provider Chiropractor; Visit Provider Chiropractor
DX: M54.16 Radiculopathy, lumbar region (principal); M54.17 Radiculopathy, lumbosacral region
CPT/HCPCS: 72148

== ENCOUNTER → 2023-04-03 | Outpatient (CLI) | payer OTHER, SELFPAY ==
--- NOTE | 2023-04-03 09:35 | BD_ITS ---
STUDY: DUAL ENERGY X-RAY ABSORPTIOMETRY / DXA REASON FOR EXAM: Female, 62 years old. 627.8Menopausal postmenopausal BONE DENSITY REASON FOR EXAM TECHNIQUE: Bone Mineral Density (BMD) measurements of lumbar spine and bilateral hips were obtained. COMPARISON: None. FINDINGS: Lumbar Spine (L1-L4): g/cm2 (0.821) / T-score (-1.8) / Z-score (-0.4) Findings are suggestive of osteopenia with a moderate fracture risk. Left Femur Total: g/cm2 (0.781) / T-score (-1.3) / Z-score (-0.3) Left Femoral Neck: g/cm2 (0.657) / T-score (-1.7) / Z-score (-0.4) Right Femur Total: g/cm2 (0.787) / T-score (-1.3) / Z-score (-0.3) Right Femoral Neck: g/cm2 (0.657) / T-score (-1.7) / Z-score (-0.4) BD/Dexa Bone Density Study IMPRESSION: The patient is considered osteopenic as outlined below according to World Brice Organization (WHO) criteria with a moderate fracture risk. Reference Information: The T-score is the number of standard deviations above or below the standard which is normal for young adults at their peak bone mineral density. The World Health Organization (WHO) interprets the T-scores as follows: Above -1 Normal bone density Between -1 and -2.5 Osteopenia Equal to / or below -2.5 Osteoporosis As a practical clinical guideline, osteopenia may be graded as follows: Mild -1 through -1.5 Moderate -1.6 through -2.0 Severe -2.1 through -2.4 The Z-score is the number of standard deviations above or below age-matched controls. A Z-score of less than -1.5 would be considered abnormal. References: 1. NIH Osteoporosis and Related Bone Diseases www osteo.org 2. International Society for Clinical Densitometry www iscd.org 3. National Osteoporosis Foundation www nof.org Electronically Signed: Kai Maldonado MD at 15:23 EDT ,
== END | disposition home or self-care (01) ==
LOC: OPBD 09:35
PROVIDERS: PCP Internal Medicine; Referring Provider Internal Medicine; Visit Provider Internal Medicine
DX: Z78.0 Asymptomatic menopausal state (principal)
CPT/HCPCS: 77080

== ENCOUNTER → 2023-05-26 | Outpatient (CLI) | payer OTHER, SELFPAY ==
--- NOTE | 2023-05-26 09:05 | BI_ITS ---
MAMMOGRAPHY - BILATERAL SCREENING REASON FOR EXAM: Female, 62 years old. Routine annual screening examination. PERTINENT HISTORY: Grandmother with breast cancer. TECHNIQUE: Digital bilateral breast otilio (3D mammographic acquisition) in the CC and MLO projections. 2-D mediolateral oblique (MLO) and craniocaudad (CC) views of both breasts were obtained. CAD: Full Field Digital Mammography with Computer Added Detection was performed. COMPARISON: Comparison is made with prior study May 23, 2022 and March 21, 2021. FINDINGS: Breast Composition: There are scattered areas of fibroglandular density. There are no dominant masses or suspicious calcifications. Stable small benign-appearing bilateral axillary lymph nodes. No other significant abnormalities are identified. There has been no significant change since the prior study. BI/SCRN MAMM (CAD)W/OTILIO BILAT IMPRESSION: Stable bilateral screening mammogram. Yearly follow-up mammogram recommended. (A) ASSESSMENT CATEGORY: BIRADS Category 2: Benign. A letter regarding these results will be sent to the patient by the facility within 30 days. Approximately 10% of breast cancers are not detected by mammography. A normal mammogram should not delay biopsy of a clinically suspicious abnormality. [id number] Electronically Signed: Kai Maldonado MD at 10:49 EDT ,
== END | disposition home or self-care (01) ==
PROVIDERS: PCP Internal Medicine; Referring Provider Internal Medicine; Visit Provider Internal Medicine
DX: Z12.31 Encounter for screening mammogram for malignant neoplasm of breast (principal)
CPT/HCPCS: 77063; 77067

== ENCOUNTER 2024-02-24 08:01 | Day surgery (SDC) | payer OTHER, SELFPAY ==
--- NOTE | 2024-02-24 | COLBX_PTH ---
PATIENT: LARISSA HAMMONDS LOC: EN U#:[id number] AGE/SX: 63/F ROOM: RE02/24/[address]: Dr. Gautam Burgos MD : 1960 BED: DIS: 02/24/2024 SPEC #: [id number] RECD: 02/24/24 13:14 STATUS: ROBIN DUNLAP #: [id number] DANETTE: 02/24/24 00:[address]: Gautam Burgos DEPT: SURGICAL PATHOLOGY RECD BY: Jamal Dobson ENTERED: 02/24/24 13:15 SP TYPE: COLON BX OTHR DR: Dr. Brandy Shirley, Tissues: Rectum, NOS Procedures: Surgery Specimen Level IV HEADER OPERATION: Colonoscopy biopsy PRE-OP DIAGNOSIS: Family history of colon cancer in mother TISSUE SUBMITTED: Proximal rectal polyp biopsy MICROSCOPIC DIAGNOSIS Proximal rectum polyp, biopsy: Fragments of colonic mucosa, no pathologic diagnosis. SJ/mr 02/25/2024 MICROSCOPIC DESCRIPTION Slides are reviewed. GROSS DESCRIPTION Received is one container labeled with the patient name and designated proximal rectal polyp, biopsy. The specimen consists of two irregular fragments of light swan soft tissue that in aggregate measure 0.3 x 0.3 x 0.1 cm. The specimen is totally submitted in one cassette. TC: 4 CPT:52317
[2024-02-24 08:27] VITALS: BP 145/74; PULSE 67; RESP 16; TEMP 36.7; O2SAT 99; BMI 47.3
[2024-02-24] MEDS: Lactated Ringers 1,000 ML 15 ML IV (08:40)
--- NOTE | 2024-02-24 08:56 | PCM.HP.STD ---
[facility] - General General Date of Service: 02/24/24 Chief Complaint: Family history of colon cancer in her mother HPI Savanah HAMMONDS, is a 63 F who presents for a surveillance colonoscopy. Her mother had colon cancer. Patient's previous colonoscopy was November 2018. She presents via open access today. She has had an opportunity to ask and have questions answered. She has had no symptoms. No bright red blood per rectum or melena. No abdominal pain. States that her health is otherwise been steady. [facility] Medical History (Updated 02/20/24 @ 11:25 by Grady Biggs) Wears contact lenses Depression Beta-thalassemia History of edema Family history of colon cancer in mother GERD (gastroesophageal reflux disease) Hyperlipidemia Plantar fasciitis Anemia Anxiety HTN (hypertension) GERD (gastroesophageal reflux disease) Home Medications ?Medication ?Instructions ?Recorded ?Last Taken ?Type amlodipine 5 mg-benazepril 20 mg 1 cap PO QHS bp 09/07/18 12/16/19 20:00 History capsule (Lotrel) aspirin 81 mg tablet,delayed 81 mg PO DAILY 09/07/18 02/17/24 History release (Adult Aspirin Regimen) calcium carbonate (Calcium 500) 500 mg PO DAILY 09/07/18 12/16/19 20:00 History cholecalciferol (vitamin D3) 1,250 50,000 unit PO QWEEK 09/07/18 Unknown History mcg (50,000 unit) capsule citalopram 20 mg tablet 20 mg PO QHS 09/07/18 12/16/19 20:00 History omeprazole 40 mg capsule,delayed 40 mg PO QHS 09/07/18 12/16/19 20:00 History release bupropion HCl 150 mg 24 hr tablet, 150 mg PO QPM 03/21/21 Unknown History extended release (Wellbutrin XL) estradiol 0.01% (0.1 mg/gram) See Rx Instructions vaginal 03/13/22 Unknown Rx vaginal cream .COMPLEX #42.5 grams pravastatin 40 mg tablet 40 mg PO DAILY 02/20/24 Unknown History Allergy/AdvReac Type Severity Reaction Status Date / Time latex Allergy Mild hives Verified 02/24/24 08:26 Sulfa (Sulfonamide Allergy Mild hives Verified 02/24/24 08:26 Antibiotics) Family History (Updated 01/23/24 @ 12:07 by Chantell Fajardo) Mother Colon cancer, Onset Age: 74 Hypertension Father CVA (cerebral vascular accident) Hypertension Surgical History (Updated 02/20/24 @ 11:25 by Grady Bigsg) H/O total hysterectomy History of colonoscopy History of foot surgery History of section Social History household members: spouse number of children: 3 current occupational status: employed current occupation: [employer] history of recent travel: No Smoking Status: Never smoker alcohol intake: never substance use type: does not use diet: Weight Watchers what type of physical activity do you participate in: walking frequency: 3-4 times per week seatbelt use: always do you feel safe at home: Yes additional social history: - Don ROS Constitutional Constitutional: Reports systems reviewed and no addt'l complaints, except as documented Cardiovascular Cardiovascular: Denies chest pain Respiratory/Chest Respiratory/Chest: Denies shortness of breath at rest Gastrointestinal Gastrointestinal: Denies abdominal pain, change in bowel habits, hematochezia or melena Vital Signs Vital Signs Vital Signs: 02/24/24 08:27 02/24/24 08:27 Temperature 98.1 F Temperature Source Temporal Pulse Rate 67 Respiratory Rate 16 Respiratory Pattern Normal Blood Pressure 145/74 H Blood Pressure Mean 97 Blood Pressure Source Monitor Blood Pressure Position Semi-Fowlers Blood Pressure Location Left Arm Pulse Ox 99 Oxygen Delivery Method Room Air Weight Weight: 284 lb 9.868 oz Body Mass Index (BMI) 47.3 Physical Exam Const alert, oriented x3 and no apparent distress General Appearance: cooperative and comfortable Eyes General Eye: normal appearance of both eyes Neck General: normal visual inspection Chest inspection of chest normal Resp Effort and Inspection: able to speak in complete sentences and symmetric chest movement Auscultation: clear to auscultation bilaterally Cardio regular rate and regular rhythm GI soft to palpation, non-tender and non-distended Extremity no calf tenderness Neuro oriented x3 Psych thought process normal Assessment & Plan Assessment/Plan (1) Family history of colon cancer in mother: PLAN: 63-year-old female presents via open access today secondary to a family history of colon cancer in her mother. She is aware of the technique, benefit, risk, alternatives. She has had an opportunity to ask and have questions answered. We will proceed as noted. Gautam Burgos M.D., F.A.C.S.
[2024-02-24 10:07] VITALS: BP 108/64; BP 145/74; PULSE 74; RESP 16; TEMP 36.2; O2SAT 94
--- NOTE | 2024-02-24 10:27 | OP.COLON_ITS ---
Patient Name: Johann Kline Procedure Date: 02/24/2024 9:30 AM Date of : 1960 Age: 63 Procedure: Colonoscopy Indications: Family history of colon cancer in a first-degree relative before age 60 years Providers: Gautam Burgos MD Referring MD: Brandy Shirley Medicines: See the Anesthesia note for documentation of the administered medications Patient Profile: Last Colonoscopy: November 2018. Complications: No immediate complications. Procedure: Pre-Anesthesia Assessment: - Prior to the procedure, a History and Physical was performed, and patient medications and allergies were reviewed. The patient's tolerance of previous anesthesia was also reviewed. The risks and benefits of the procedure and the sedation options and risks were discussed with the patient. All questions were answered, and informed consent was obtained. Prior Anticoagulants: The patient has taken no anticoagulant or antiplatelet agents. ASA Grade Assessment: II - A patient with mild systemic disease. After reviewing the risks and benefits, the patient was deemed in satisfactory condition to undergo the procedure. After I obtained informed consent, the scope was passed under direct vision. Throughout the procedure, the patient's blood pressure, pulse, and oxygen saturations were monitored continuously. The colonoscope was introduced through the anus and advanced to the cecum, identified by appendiceal orifice and ileocecal valve. The colonoscopy was performed without difficulty. The patient tolerated the procedure well. The quality of the bowel preparation was good. The ileocecal valve and the appendiceal orifice were photographed. Scope In: 10:10:36 AM Scope Withdrawal Time 0 hours 8 minutes 15 seconds Scope Out: 10:22:46 AM Total Procedure Duration Time 0 hours 12 minutes 10 seconds Findings: Hemorrhoids were found on perianal exam. A 3 mm polyp was found in the proximal rectum. The polyp was sessile. The polyp was removed with a cold biopsy forceps. Resection and retrieval were complete. Multiple diverticula were found in the sigmoid colon and descending colon. The exam was otherwise without abnormality. Impression: - Hemorrhoids found on perianal exam. - One 3 mm polyp in the proximal rectum, removed with a cold biopsy forceps. Resected and retrieved. - Diverticulosis in the sigmoid colon and in the descending colon. - The examination was otherwise normal. Recommendation: - Discharge patient to home. - Resume previous diet. - Continue present medications. - Repeat colonoscopy in 5 years for surveillance. - Telephone my office for pathology results in 1 week. Procedure Code(s): --- Professional --- 90492, Colonoscopy, flexible; with biopsy, single or multiple Diagnosis Code(s): --- Professional --- K64.9, Unspecified hemorrhoids D12.8, Benign neoplasm of rectum Z80.0, Family history of malignant neoplasm of digestive organs K57.30, Diverticulosis of large intestine without perforation or abscess without bleeding CPT copyright 2021 [employer]. All rights reserved. The codes documented in this report are preliminary and upon vp compliance review may be revised to meet current compliance requirements. Gautam Burgos MD 02/24/2024 10:27:18 AM This report has been signed electronically. Number of Addenda: 0 Note Initiated On: 02/24/2024 9:30 AM
--- NOTE | 2024-02-24 10:27 | OP.CCLET_ITS ---
02/24/2024 Brandy Shirley [address] [place] [address] Re : Colonoscopy procedure for Johann Kline Dear Dr. Shirley This procedure was performed on Saturday, February 24, 2024. My impressions and recommendations are as follows: Impressions : - Hemorrhoids found on perianal exam. - One 3 mm polyp in the proximal rectum, removed with a cold biopsy forceps. Resected and retrieved. - Diverticulosis in the sigmoid colon and in the descending colon. - The examination was otherwise normal. Recommendations : - Discharge patient to home. - Resume previous diet. - Continue present medications. - Repeat colonoscopy in 5 years for surveillance. - Telephone my office for pathology results in 1 week. My findings are described in the full procedure note, which is enclosed. If I can be of further assistance, please feel free to contact me at Doctor phone number(s): Work: . Sincerely, Gautam Burgos MD 02/24/2024 10:27:18 AM This report has been signed electronically.
[2024-02-24 10:30] VITALS: BP 103/65; BP 145/74; PULSE 66; RESP 16; O2SAT 96
[2024-02-24 10:35] VITALS: BP 114/74; BP 145/74; PULSE 68; RESP 16; O2SAT 96
[2024-02-24 10:40] VITALS: BP 116/83; BP 145/74; PULSE 64; RESP 16; TEMP 36.2; O2SAT 93
[2024-02-24 10:52] VITALS: BP 145/74
== END 2024-02-24 10:59 | disposition home or self-care (01) ==
LOC: EN 08:01 → AC 08:04
PROVIDERS: PCP Internal Medicine; Referring Provider Internal Medicine; Visit Provider Surgery
PROC: 0DJD8ZZ Inspection of Lower Intestinal Tract, Via Natural or Artificial Opening Endoscopic (ICD-10-PCS; CPT 45378; principal; 2024-02-24 09:25)
DX: Z12.11 Encounter for screening for malignant neoplasm of colon (principal); K57.30 Diverticulosis of large intestine without perforation or abscess without bleeding; I10 Essential (primary) hypertension; Z79.82 Long term (current) use of aspirin; K62.1 Rectal polyp; E78.5 Hyperlipidemia, unspecified; Z80.0 Family history of malignant neoplasm of digestive organs; K64.9 Unspecified hemorrhoids; Z79.899 Other long term (current) drug therapy; F32.A Depression, unspecified; K21.9 Gastro-esophageal reflux disease without esophagitis; F41.9 Anxiety disorder, unspecified; Z90.710 Acquired absence of both cervix and uterus
CPT/HCPCS: 45380; 88305; J7120; J2405

== ENCOUNTER → 2024-08-20 | Outpatient (CLI) | payer OTHER, SELFPAY | END | disposition home or self-care (01) | LOC: LABSPEC 13:10 | PROVIDERS: PCP Internal Medicine; Referring Provider Obstetrics & Gynecology; Visit Provider Obstetrics & Gynecology | DX: L72.3 Sebaceous cyst (principal) | CPT/HCPCS: 87070; 87077; 87186; 87205 ==